=== PATIENT | female | born 1975 | race African-American/Black ===

== ENCOUNTER 2022-08-22 18:24 | Emergency (ER) | payer MEDICAID, OTHER ==
[~2022-08-22] VITALS: Ht 167.6 cm; Wt 102.0 kg
[2022-08-22] MEDS ORDERED: MET10LQ PO ×2 (18:57→19:43)
[2022-08-22 19:21] VITALS: BP 133/89
== END 2022-08-22 19:23 | disposition home or self-care (01) ==
LOC: ER 18:28
DX: G43.909 Migraine, unspecified, not intractable, without status migrainosus (principal)